=== PATIENT | female | born 1985 | race Caucasian/White ===

== ENCOUNTER → 2017-06-09 | Outpatient (CLI) | payer BC ==
[~2017-06-09] MED LIST: TRAMTAB5 PO
--- NOTE | 2017-06-09 09:10 | DIAGNOSTIC IMAGING REPORT ---
KUB CLINICAL HISTORY: N20.0 [id number] COMPARISON STUDY: 06/20/2016 FINDINGS: There are surgical clips within the right upper quadrant consistent with a prior cholecystectomy. There is a linear opaque structure located lateral to the right L3 transverse process, likely representing an additional surgical clip. This clip was not present on the preceding study. Correlation with history of interval surgery is suggested. There are no calcifications suspicious for renal calculi. There is no pathologic bowel dilatation. IMPRESSION: 1. No urinary tract calculi identified 2. New opaque structure within the right mid abdomen, possibly representing a surgical clip. Please correlate with any history of interval surgery. Electronically signed by: Supa Kiran M.D. 06/09/2017 9:09 AM Dictated Date/Time: 06/09/2017 9:07 AM
== END | disposition home or self-care (01) ==
LOC: C.RAD 08:25
PROVIDERS: ATTEND Nurse Practitioner Family
DX: N20.0 Calculus of kidney (principal)

== ENCOUNTER → 2017-07-31 | Outpatient (CLI) | payer BC ==
[2017-07-31 19:39] LABS: THYROID STIMULATING HORMONE 4.61 uIu/ml (0.300-4.500)
== END | disposition home or self-care (01) ==
LOC: C.LAB 17:31
PROVIDERS: ATTEND Obstetrics & Gynecology
DX: N92.6 Irregular menstruation, unspecified (principal)

== ENCOUNTER → 2017-11-14 | Outpatient (CLI) | payer OTHER | END | disposition home or self-care (01) | LOC: C.PAPS 15:05 | PROVIDERS: ATTEND Obstetrics & Gynecology | DX: Z01.419 Encounter for gynecological examination (general) (routine) without abnormal findings (principal) ==